=== PATIENT | female | born 1990 | race Caucasian/White ===

== ENCOUNTER 2018-12-25 18:35 | Emergency (ER) | payer BC ==
[~2018-12-25] VITALS: Ht 162.6 cm; Wt 53.5 kg
[2018-12-25 18:40] VITALS: BP_SYST 134
--- NOTE | 2018-12-25 18:50 | NUR ---
Patient to ER bed 8 to gown for evaluation. Side rails up.
--- NOTE | 2018-12-25 18:50 | NUR ---
Patient arrived via POV, AAOx4, and ambulatory with steady gait. Patient c/c of nasal pain. Patient states she was at a home with floor to ceiling windows and she walked into it. Patient states she hit face on window and and had a small bleeding opening on medial nose. Per patient she states there have been prior injuries to same area of the nose. She is concerned regarding fracture. No bleeding nose present. Area to opening has controlled bleeding. Patient calm and cooperative. Will continue to follow up and monitor.
--- NOTE | 2018-12-25 18:55 | NUR ---
MINNA Blum examining patient.
[2018-12-25] MEDS ORDERED: DIPH-TET-PERTUS Vaccine 0.5 ML VIAL (ADACEL) I.M. ONE (19:00)
[2018-12-25] MEDS ORDERED: IBUPROFEN 600 MG TABLET PO ONE (19:00)
--- NOTE | 2018-12-25 19:15 | NUR ---
nursing report recieved, vaccine and medication given. no other complaint or injury given at this time.
[2018-12-25 20:20] VITALS: BP_SYST 130
--- NOTE | 2018-12-25 20:20 | NUR ---
Patient given written and verbal discharge instructions and verbalizes understanding. ER MD discussed with patient the results and treatment provided. Patient in stable condition. ID arm band removed. Rx of motrin given. Patient educated on pain management and to follow up with PMD. Pain Scale 0/10. Opportunity for questions provided and answered. Medication side effect fact sheet provided.
== END 2018-12-25 20:20 | disposition home or self-care (01) ==
LOC: SED 18:35
DX: S01.21XA Laceration without foreign body of nose, initial encounter (principal); W22.8XXA Striking against or struck by other objects, initial encounter; Y93.89 Activity, other specified; Y92.89 Other specified places as the place of occurrence of the external cause; Y99.8 Other external cause status
CPT/HCPCS: 70486-TC; 81025; 90715; 99284